=== PATIENT | male | born 1975 | race Caucasian/White ===

== ENCOUNTER 2016-09-05 07:15 | Day surgery (SDC) | payer OTHER ==
[2016-08-23 15:03] VITALS: BMI 26.0
--- NOTE | 2016-08-23 15:32 | PAT Medication Instructions ---
Service Date August 23, 2016. Current Home Medication List Cetirizine (Zyrtec), 10 MG PO QAM Ibuprofen (Advil), 200 MG PO PRN Omeprazole (Prilosec), 20 MG PO QAM Vitamin B Cmplx/Vitc/Folic Ac (Nephrocaps), 1 CAP PO QPM Medication Instructions For Your Scheduled Surgery - Hold the following for 1 week prior to surgery per surgeon's instructions: Ibuprofen (Advil), 200 MG PO PRN - Hold the following medications the morning of surgery: Cetirizine (Zyrtec), 10 MG PO QAM - Take the following medications the morning of surgery with a sip of water OTHERWISE NOTHING TO EAT OR DRINK AFTER MIDNIGHT: Omeprazole (Prilosec), 20 MG PO QAM - Take the following medications as scheduled the night before surgery: Vitamin B Cmplx/Vitc/Folic Ac (Nephrocaps), 1 CAP PO QPM If you have any questions please call us at [phone] or [phone] or [phone]
[2016-08-23 16:01] LABS: BASO % 0.5 %; BASO ABS # 0.04 K/uL (0-0.2); COMPLETE YES; HEMATOCRIT 45.7 % (42-52); IG% 0.1 %; LYMPH ABS # 2.57 K/uL (1.2-3.4); MEAN CELL VOLUME 92.7 fL (80-100); MEAN CORPUSCULAR HEMOGLOBIN 31.4 pg (25-34); MEAN CORPUSCULAR HGB CONC 33.9 g/dl (32-36); MEAN PLATELET VOLUME 9.5 fL (7.4-10.4); MONO % 7.3 %; NEUT % 54.1 %; PLATELET COUNT 300 K/uL (130-400); RED BLOOD COUNT 4.93 M/uL (4.7-6.1); WHITE BLOOD COUNT 7.35 K/uL (4.8-10.8)
[2016-08-23 16:02] LABS: URINE APPEARANCE CLEAR (CLEAR); URINE BILIRUBIN NEG (NEG); URINE COLOR YELLOW; URINE NITRITE NEG (NEG); URINE SPECIFIC GRAVITY 1.009 (1.000-1.030); UROBILINOGEN NEG (NEG)
--- NOTE | 2016-08-23 16:03 | DIAGNOSTIC IMAGING REPORT ---
CHEST PREADMISSION(PA/LAT) CLINICAL HISTORY: PAT COMPARISON STUDY: No previous studies for comparison. FINDINGS: The bones soft tissues and hemidiaphragms are normal. The cardiomediastinal silhouette is normal. The lungs are clear. The pulmonary vasculature is normal. IMPRESSION: Negative chest. Electronically signed by: Homer Smith M.D. 08/23/2016 4:01 PM Dictated Date/Time: 08/23/2016 4:01 PM
[2016-08-23 16:04] LABS: MANUAL MICROSCOPIC REQUIRED? NO; REVIEW REQ? NO
[2016-08-23 16:25] LABS: BUN/CREATININE RATIO 8.1 (10-20); CREATININE 1.3 mg/dl (0.60-1.40); POTASSIUM 4.2 mmol/L (3.5-5.1)
[~2016-09-05] VITALS: Ht 188 cm; Wt 94.4 kg
[~2016-09-05 07:15] MED LIST: B-CO1CAP17 PO; CEFAZOLIN 2000 MG/60 ML D5W IV SCH; CETI10TA84 PO; FENTANYL CITRATE INJ 50 MCG/1 ML 2 ML VIAL ONE; IBUP-1050 PO; LACTATED RINGER'S 1000ML 1,000 ML IV SCH; LIDOCAINE HCL 2% 2 ML VIAL (20MG/ML) ONE; MIDAZOLAM HCL 1 MG/ML 2ML VIAL ONE; PRLSR20 PO; PROPOFOL IV EMULSION 10 MG/ML 20 ML VIAL IV ONE
[2016-09-05] MEDS ORDERED: BUPIVACAINE 0.5 % 5 MG/1 ML MPF 30ML VIAL ONE (07:17)
[2016-09-05] MEDS ORDERED: BACITRACIN OINT 15 GM TUBE ONE (07:17)
[2016-09-05] MEDS ORDERED: LIDOCAINE HCL 1% 20 ML VIAL ONE (07:17)
[2016-09-05 07:43] VITALS: BP 125/80; PULSE 63; TEMP 37.1; O2SAT 96; Ht 188 cm; Wt 94.4 kg
[2016-09-05] MEDS ORDERED: HYDROmorphone INJ 1 MG/ML SYR IV PRN (08:45)
[2016-09-05] MEDS ORDERED: PHENYLEPHRINE 100MCG/ML 5ML SYR IV PRN (08:45)
[2016-09-05] MEDS ORDERED: ATROPINE SULFATE 0.1 MG/ML 5ML SYR IV PRN (08:45)
[2016-09-05] MEDS ORDERED: ONDANSETRON INJ 2 MG/ML 2 ML VIAL IV PRN (08:45)
[2016-09-05] MEDS ORDERED: EpHEDrine SULFATE INJ 50 MG/ML AMP IV PRN (08:45)
--- NOTE | 2016-09-05 11:20 | History & Physical Bridge Note ---
H&P Re-Evaluation Bridge Note: I have examined the patient, reviewed the History & Physical and in the interval since the performance of the History & Physical I have noted the following changes of clinical significance: No changes noted
[2016-09-05] MEDS ORDERED: DEXAMETHASONE SOD INJ 4 MG/ML VIAL ONE (11:41)
[2016-09-05] MEDS ORDERED: ONDANSETRON INJ 2 MG/ML 2 ML VIAL ONE (11:42)
[2016-09-05] MEDS ORDERED: EpHEDrine SULFATE 50MG/5ML SYR ONE (11:51)
[2016-09-05] MEDS ORDERED: CEPH500C2 PO (12:47)
[2016-09-05] MEDS ORDERED: OXYC7.5T65 PO (12:47)
--- NOTE | 2016-09-05 12:50 | Discharge Instructions ---
Discharge Instructions Date of Service Sep 05, 2016. Admission Reason for Admission: Phimosis & Sterilization Discharge Discharge Diagnosis / Problem: Circumcision, bilateral vas, release of chordee Discharge Goals Goal(s): Improve function, Increase independence, Therapeutic intervention Activity Recommendations Activity Limitations: as noted below Lifting Limitations: no more than 25 pounds, gradually increase as tolerated ( x 5-7 days) Exercise/Sports Limitations: rest today, gradually increase as tolerated (x 5- 7 days) May Resume Sexual Activity: after two weeks Shower/Bathe: tomorrow (no tub bath) . Instructions / Follow-Up Instructions / Follow-Up Ice packs, scrotal support x 1-2 days Bacitracin ointment to incisions at least three times a day Remove penile dressing if becomes too tight or painful, otherwise remove in 24 hours Discharge Diet Recommended Diet: Regular Diet (good fluid intake) Procedures Procedures Performed: Bilateral Vasectomy, Circumcision and Repair of Chordee Pending Studies Studies pending at discharge: yes List of pending studies: Pathology reports Medical Emergencies . Who to Call and When: Medical Emergencies: If at any time you feel your situation is an emergency, please call 911 immediately. . Non-Emergent Contact Non-Emergency issues call your: Urologist Call Non-Emergent contact if: you have a fever, temperature is above 101, your pain is not controlled, your pain is worsening, your pain is concerning you, wound has increased drainage, wound has increased redness, wound has increased pain, you have any medication questions . . "Provider Documentation" section prepared by Ko Aviles. . VTE Core Measure Inpt VTE Proph given/why not?: SCD's [place] Drug Monitoring Program Search Results: patient reviewed within database, no issues identified
--- NOTE | 2016-09-05 12:52 | [facility] Post Operative Brief Note ---
Immediate Operative Summary Operative Date Sep 05, 2016. Pre-Operative Diagnosis Phimosis, Undesired Fertility Post-Operative Diagnosis Same, Chordee Procedure(s) Performed Bilateral Vasectomy, Circumcision and Repair of Chordee Surgeon Dr. Ko Aviles Correctional Probation Officer Surgeon(s) None Estimated Blood Loss 10 ML Findings Chordee noted on closure, release for penile straightening, excellent hemostasis and cosmesis Specimens Specimens A. Vas Deferens Left B. Vas Deferens Right C. Foreskin Drains NA Anesthesia GALMA + local Complication(s) None Disposition Recovery Room / PACU
[2016-09-05] MEDS ORDERED: OXYCODONE/ACETAMINOPHEN 5-325 TAB PO PRN (13:00)
[2016-09-05 13:25] VITALS: BP 115/59; PULSE 75; TEMP 36.4; O2SAT 98
--- NOTE | 2016-09-05 13:34 | Anesthesiology Progress Note ---
Anesthesia Post Op Note Date & Time Sep 05, 2016 at 13:34 Vital Signs Pain Intensity: 2 Vital Signs Past 12 Hours Date Time Temp Pulse Resp B/P (MAP) Pulse Ox O2 Delivery O2 Flow Rate FiO2 09/05/16 13:20 36.1 66 13 128/71 94 Room Air 09/05/16 13:10 73 14 124/71 100 Room Air 09/05/16 13:00 67 12 104/46 100 Mask 10 09/05/16 12:50 76 10 124/67 100 Mask 10 09/05/16 12:41 36.7 72 16 111/64 100 Mask 10 09/05/16 07:43 37.1 63 16 125/80 (95) 96 Room Air Notes Mental Status: alert / awake / arousable, participated in evaluation Pt Amnestic to Procedure: Yes Nausea / Vomiting: adequately controlled Pain: adequately controlled Airway Patency, RR, SpO2: stable & adequate BP & HR: stable & adequate Hydration State: stable & adequate Anesthetic Complications: no major complications apparent
[2016-09-05 13:55] VITALS: BP 114/71; PULSE 68; O2SAT 100
[2016-09-05 14:25] VITALS: BP 132/72; PULSE 68; TEMP 36.4; O2SAT 96
--- NOTE | 2016-09-05 19:14 | OPERATIVE REPORT ---
DATE OF OPERATION: 09/05/2016 PREOPERATIVE DIAGNOSIS: Phimosis, undesired fertility. POSTOPERATIVE DIAGNOSIS: Same, chordee. PROCEDURE: Bilateral vasectomy, circumcision and correction of chordee. SURGEON: Dr. Ko Aviles. TRAIN SYSTEM OPERATOR: None. ANESTHESIA: General anesthesia with laryngeal mask plus local penile block and a vas block. COMPLICATIONS: None. ESTIMATED BLOOD LOSS: 10 mL. FINDINGS: Chordee noted on closure, release for penile straightening, excellent cosmesis and hemostasis. SPECIMENS SENT TO PATHOLOGY: Left vas, right vas, foreskin. DRAINS LEFT IN PLACE: None. BRIEF HISTORY: Mr. Ivan is a 41-year-old male well-known to myself, who I have seen as an outpatient for history of undesired fertility and phimosis. He notes that he is bothered with his foreskin and desires circumcision. Seeing the confluence of these 2 factors, he is being brought to the operating room for correction rather than being performed in the office. Please see H&P for further details. Consent for both procedures was reviewed today preoperatively with the patient. Intravenous Ancef provided for antibiotic coverage and SCDs used for DVT prophylaxis. PROCEDURE: The patient was properly identified and brought to the operative suite. After identification of appropriate consent on the chart, general anesthesia with laryngeal mask was initiated and the patient was prepped and draped in standard fashion for this procedure. industrial maintenance instructor-out procedure was followed. Attention was first turned to the vas deferens, which were easily palpable on both sides. Small skin wheal was made in the midline superior anterior scrotum and a small incision was made using a 15 blade. Left-sided vas was palpated and anesthetized with a vasal sheath block. This was then dissected free using sharp hemostats and grasped using a ring forceps. It was able to be delivered from the incision easily and was circumscribed and well defined. It was clamped on both ends and then divided. A greater than 1 cm length of vas was excised. Both ends of the vas were generously cauterized and then tied using 2-0 Vicryl ties. They were returned to the scrotum and in different planes and the procedure was repeated on the right hand side where the vas was again easily palpable, blocked using a cord block, excised, fulgurated and tied. Both vas were returned to their scrotal location and the skin was closed using 4-0 Monocryl. Bacitracin was placed over the incision and pressure was held for a moment with no significant swelling or bruising being appreciated. After this was complete, attention was turned to the foreskin. The limits of dissection were marked using a skin marker and 2 circumferential incisions for a sleeve technique to be performed. Excess foreskin was divided at the 12 o'clock position using Metzenbaum scissors and then removed from the patient using Bovie cautery, care taken to avoid any injury to the corpora or neurovascular bundles of the penis. After this was excised, excess foreskin was removed and sent off for pathologic analysis. Excellent apposition of the skin was noted. Excess frenular tissue was removed and hemostasis was obtained with Bovie cautery as necessary. A 3-0 Vicryl suture was used at the cardinal positions and then remaining skin was closed using 3-0 chromic sutures circumferentially. However, on completion of the case and while observing the cosmesis of the procedure, some ventral chordee was appreciated in the distal shaft of the head of the penis. It was likely felt that a tethering at the level of the skin was present preoperatively, had been released and then reattached upon closure of the circumcision incision. The ventral sutures were released and blunt dissection was carried out on the subcutaneous tissues to allow adequate straightening of penis. These incisions were then reapproximated with excess skin being removed in a longitudinal fashion rather than circumferential. This allowed for a significant correction of the patient's chordee on inspection surgically with a repeat excellent cosmesis. After this was complete, a generous bacitracin ointment was placed as well as a Xeroform gauze and loosely wrapped Coban dressing. Scrotal support with fluffs was placed. Anesthesia was reversed. The patient was transferred to the recovery room in stable condition. FOLLOWUP CARE: The patient will be discharged home with a prescription for Percocet and Keflex. Postoperative appointments are confirmed. The patient is instructed to use ice packs and jockstrap x48 hours. Activity limitations are reviewed. The patient is instructed to contact our service should he note any fevers, chills, nausea, vomiting or other significant difficulties in the postoperative period. I attest to the content of the Intraoperative Record and any orders documented therein. Any exception s are noted below.
== END 2016-09-05 14:37 | disposition home or self-care (01) ==
LOC: C.ACU 07:15
PROVIDERS: ATTEND Urology
DX: N47.1 Phimosis (principal); Z30.2 Encounter for sterilization; N48.89 Other specified disorders of penis; Z87.01 Personal history of pneumonia (recurrent); Z90.49 Acquired absence of other specified parts of digestive tract; Z80.42 Family history of malignant neoplasm of prostate

== ENCOUNTER → 2017-01-10 | Outpatient (CLI) | payer OTHER ==
[~2017-01-10] MED LIST changes: -CEFAZOLIN 2000 MG/60 ML D5W IV SCH; +CEPH500C2 PO; -FENTANYL CITRATE INJ 50 MCG/1 ML 2 ML VIAL ONE; -LACTATED RINGER'S 1000ML 1,000 ML IV SCH; -LIDOCAINE HCL 2% 2 ML VIAL (20MG/ML) ONE; -MIDAZOLAM HCL 1 MG/ML 2ML VIAL ONE; +OXYC7.5T65 PO; -PROPOFOL IV EMULSION 10 MG/ML 20 ML VIAL IV ONE
--- NOTE | 2017-01-10 08:56 | DIAGNOSTIC IMAGING REPORT ---
ULTRASOUND TESTES AND SCROTUM CLINICAL HISTORY: Right testicular pain. COMPARISON STUDY: No priors. TECHNIQUE: Real-time, grayscale, and color Doppler sonography of the testes and scrotum is performed. Images are reviewed in the transverse and longitudinal planes. FINDINGS: The testes are normal in size and homogeneous in echotexture. The right testis measures 4. By 2.0 x 3.2 cm and the left testis measures 4.3 x 1.9 x 3.3 cm. No intratesticular mass is seen. Testicular blood flow is normal and symmetric. Normal Doppler waveforms are identified in both testes. The epididymal heads are normal in appearance. The right epididymal head measures 1.1 cm in length and the left epididymal head measures 1.0 cm in length. No varicocele or hydrocele is seen. IMPRESSION: Unremarkable sonographic assessment of the testes and scrotum. Electronically signed by: Donny Tijerina M.D. 01/10/2017 8:54 AM Dictated Date/Time: 01/10/2017 8:53 AM
== END | disposition home or self-care (01) ==
LOC: C.ULTRBC 08:25
PROVIDERS: ATTEND Family Medicine
DX: N50.819 Testicular pain, unspecified (principal); R10.13 Epigastric pain

== ENCOUNTER 2017-05-21 20:11 | Emergency (ER) | payer OTHER ==
[~2017-05-21] VITALS: Ht 188 cm; Wt 96.2 kg
[~2017-05-21 20:11] MED LIST changes: -CEPH500C2 PO; -OXYC7.5T65 PO
[2017-05-21 20:19] VITALS: TEMP 36.9; Ht 188 cm; Wt 96.2 kg
[2017-05-21 21:00] VITALS: O2SAT 95
--- NOTE | 2017-05-21 21:00 | EMERGENCY ROOM VISIT NOTE ---
History Report prepared by Giuseppe: Jennifer Rojo Under the Supervision of: Dr. Deuce Beebe M.D. First contact with patient: 20:52 Chief Complaint: CHEST PAIN Stated Complaint: CHEST PAIN FRONT AND BACK History of Present Illness The patient is a 41 year old male who presents to the Emergency Room with complaints of worsening chest pain that has been ongoing for the last several years. The patient rates his pain an 8/10 in severity. He notes he's had chest pain for the past several years but today it got much worse. He describes the pain as "sharp". He notes it was present throughout most of the day today. He states the pain radiates to the middle of his back and sometimes in his shoulders. He sates "sometimes it feels like there is pain going down my esophagus". He has an EDG scheduled for June 02. The patient notes he has been nauseous. He denies any fevers, chills, cough, congestion, vomiting, or diarrhea. The patient denies any history of diabetes, high blood pressure. He denies any family history of early due to heart attacks. He notes his sister has an aneurysm in her head. Source of History: patient Onset: ongoing for several years Position: chest Symptom Intensity: 8/10 Quality: sharp Timing: worsening Associated Symptoms: + nausea, No fevers, No chills, No cough, No vomiting, No diarrhea Review of Systems See HPI for pertinent positives and negatives. A total of ten systems were reviewed and were otherwise negative. Past Medical & Surgical Medical Problems: (1) Gastroesophageal reflux disease (2) IBS (3) Tonsillectomy Family History Sister has a brain aneurysm. Social History Smoking Status: Never Smoker Alcohol Use: none Drug Use: none Marital Status: Housing Status: lives with family Occupation Status: employed Current/Historical Medications Scheduled Famotidine (Pepcid), 20 MG PO BID Omeprazole (Prilosec), 20 MG PO BID Scheduled PRN Acetaminophen (Tylenol), 1 TAB PO Q8 PRN for Pain Allergies Coded Allergies: Dicyclomine (Unverified Allergy, Unknown, RASH, 05/21/17) Dutasteride (Unverified Allergy, Unknown, HIVES, 05/21/17) Gluten (Unverified Allergy, Unknown, GI UPSET, 05/21/17) Levofloxacin (Verified Allergy, Unknown, "DOES SOMETHING WEIRD, CAN NOT EXPLAIN", 05/23/17) Physical Exam Vital Signs Date Time Temp Pulse Resp B/P (MAP) Pulse Ox O2 Delivery O2 Flow Rate FiO2 05/21/17 23:05 75 18 121/72 98 Room Air 05/21/17 21:00 95 Room Air 05/21/17 21:00 94 Room Air 05/21/17 20:57 69 05/21/17 20:19 36.9 77 18 134/86 99 Room Air Physical Exam GENERAL: Awake, alert, uncomfortable appearing, in no distress HENT: Normocephalic, atraumatic. Oropharynx unremarkable. Dry mucus membranes. EYES: Normal conjunctiva. Sclera non-icteric. NECK: Supple. No nuchal rigidity. FROM. No JVD. RESPIRATORY: Clear to auscultation. CARDIAC: Regular rate, normal rhythm. Extremities warm and well perfused. Pulses equal. UPPER EXTREMITIES: Equal bilateral extremity pulses. ABDOMEN: Mild ttp to epigastrium, no peritoneal signs. RECTAL: Deferred. MUSCULOSKELETAL: MIld ttp to upper anterior chest wall and thoracis paraspinal muscles, no step offs. LOWER EXTREMITIES: Calves are equal size bilaterally and non-tender. No edema. No discoloration. NEURO: Normal sensorium. No sensory or motor deficits noted. SKIN: No rash or jaundice noted. Medical Decision & Procedures Laboratory Results 05/21/17 21:00 Red Blood Count 4.43, Mean Corpuscular Volume 90.7, Mean Corpuscular Hemoglobin 32.3, Mean Corpuscular Hemoglobin Concent 35.6, Mean Platelet Volume 9.2, Neutrophils (%) (Auto) 59.0, Lymphocytes (%) (Auto) 28.1, Monocytes (%) (Auto) 10.9, Eosinophils (%) (Auto) 1.4, Basophils (%) (Auto) 0.5, Neutrophils # (Auto ) 4.52, Lymphocytes # (Auto) 2.16, Monocytes # (Auto) 0.84, Eosinophils # (Auto ) 0.11, Basophils # (Auto) 0.04 05/21/17 21:00 Test 05/21/17 21:00 White Blood Count 7.68 K/uL (4.8-10.8) Red Blood Count 4.43 M/uL (4.7-6.1) Hemoglobin 14.3 g/dL (14.0-18.0) Hematocrit 40.2 % (42-52) Mean Corpuscular Volume 90.7 fL (80-100) Mean Corpuscular Hemoglobin 32.3 pg (25-34) Mean Corpuscular Hemoglobin Concent 35.6 g/dl (32-36) Platelet Count 252 K/uL (130-400) Mean Platelet Volume 9.2 fL (7.4-10.4) Neutrophils (%) (Auto) 59.0 % Lymphocytes (%) (Auto) 28.1 % Monocytes (%) (Auto) 10.9 % Eosinophils (%) (Auto) 1.4 % Basophils (%) (Auto) 0.5 % Neutrophils # (Auto) 4.52 K/uL (1.4-6.5) Lymphocytes # (Auto) 2.16 K/uL (1.2-3.4) Monocytes # (Auto) 0.84 K/uL (0.11-0.59) Eosinophils # (Auto) 0.11 K/uL (0-0.5) Basophils # (Auto) 0.04 K/uL (0-0.2) RDW Standard Deviation 38.8 fL (36.4-46.3) RDW Coefficient of Variation 11.7 % (11.5-14.5) Immature Granulocyte % (Auto) 0.1 % Immature Granulocyte # (Auto) 0.01 K/uL (0.00-0.02) Anion Gap 11.0 mmol/L (3-11) Est Creatinine Clear Calc Drug Dose 73.2 ml/min Estimated GFR () 64.1 Estimated GFR (Non- 55.3 BUN/Creatinine Ratio 10.7 (10-20) Calcium Level 9.2 mg/dl (8.5-10.1) Total Bilirubin 0.2 mg/dl (0.2-1) Direct Bilirubin < 0.1 mg/dl (0-0.2) Aspartate Amino Transf (AST/SGOT) 17 U/L (15-37) Alanine Aminotransferase (ALT/SGPT) 22 U/L (12-78) Alkaline Phosphatase 64 U/L (45-117) Troponin I < 0.015 ng/ml (0-0.045) Total Protein 7.0 gm/dl (6.4-8.2) Albumin 3.7 gm/dl (3.4-5.0) Lipase 153 U/L (73-393) Laboratory results reviewed by me Medications Administered Medications (Trade) Dose Ordered Sig/Isi Route Start Time Stop Time Status Last Admin Dose Admin Famotidine (Pepcid 20mg Iv Push) 20 mg NOW STAT IV 05/21/17 21:36 05/21/17 21:38 DC 05/21/17 21:49 20 MG Acetaminophen (Tylenol Tab) 1,000 mg NOW STAT PO 05/21/17 21:36 05/21/17 21:38 DC 05/21/17 21:48 1,000 MG Miscellaneous Medication (Gi Cocktail) 24 ml NOW STAT PO 05/21/17 21:36 05/21/17 21:38 DC 05/21/17 21:36 24 ML Diazepam (Valium Tab) 5 mg NOW STAT PO 05/21/17 21:36 05/21/17 21:38 DC 05/21/17 21:48 5 MG Diazepam (Valium Tab) 5 mg NOW STAT PO 05/21/17 23:18 05/21/17 23:20 DC 05/21/17 23:18 5 MG ECG Per My Interpretation Indication: chest pain Rate (beats per minute): 69 Rhythm: normal sinus Findings: no acute ischemic change, other (normal axis) ED Course 2051: The patient was evaluated in room C12B. A complete history and physical exam was performed. 2128: I answered all of the patient's questions and concerns regarding his CT. Medical Decision I reviewed the patient's past medical history, medications, and the nursing notes as described above. Differential diagnosis: Etiologies such as cardiac ischemia, aortic dissection, pulmonary embolism, pneumonia, pneumothorax, musculoskeletal, infections, pericarditis, myocarditis , esophageal rupture, gastrointestinal, as well as others were entertained. The patient is a 41-year-old gentleman with a past medical history of CKD and chronic chest and abdominal pain presents emergency Department with chest, back , abdominal pain that has been worsening since earlier today per hpi. Arrival the patient is no acute distress, afebrile stable vital signs. She has mild epigastric discomfort as well as anterior chest wall tenderness to palpation. Additionally patient has bilateral paraspinal thoracic muscle tenderness to palpation. She denies equal pulses bilaterally. The patient initially reporting tearing pain in his stomach to his back. He also reports that he has a sister who is known to have a cerebral aneurysm. Thus given this history I recommended to the patient that we obtain a CTA of his chest and belly to assess his aorta. Patient seems quite certain that he has had these studies in the past as outpatient. However we do not have the studies readily available. CTA was ordered however then patient was reluctant given his history of numerous CTs in the past. Given the patient's equal pulses and lack of neurologic symptoms it reasonable to defer this at this time. Bedside ultrasound of the patient's abdominal aorta and echo did not show any gross enlargement his abdominal aorta or aortic root. CXR unremarkable with normal mediastinum. Labs are unremarkable including WBC within normal limits. Creatinine near baseline. Patient feeling much improved after IV fluids, IV Pepcid and GI cocktail as well as Valium for muscle spasm. Plan to follow with the patient's current outpatient plan including endoscopy in early June. Findings and plan for follow-up reviewed with patient. Patient agreeable and d/c 'd per discharge instructions. Medication Reconcilliation Current Medication List: was personally reviewed by me Impression Primary Impression: Chest wall pain Additional Impressions: Gastritis Spasm of back muscles Dehydration Scribe Attestation The scribe's documentation has been prepared under my direction and personally reviewed by me in its entirety. I confirm that the note above accurately reflects all work, treatment, procedures, and medical decision making performed by me. Departure Information Dispostion Home / Self-Care Referrals No Doctor, Assigned (PCP) Patient Instructions ED Chest Pain Costochondritis, ED Dehydration, ED Gastritis, ED Muscle Aching, ED Spasm Muscle, My [facility] Additional Instructions Please follow up with your primary care physician and with your GI specialist as scheduled for re-evaluation. Your symptoms are most likely due to muscle strain provoked by physical activity in the setting of mild dehydration as well as likely symptoms of chronic gastritis. Otherwise, your exam, EKG, chest xray, and lab results did not show signs of an emergent condition at this time. Acetaminophen for pain and fevers as needed. Pepcid in addition to your omeprazole for additional acid relief/reduction. Heating pad at 20 minute intervals throughout the day for muscle relaxation. Valium as needed for additional muscle relaxation. Drink plenty of fluids to ensure hydration. Return to the emergency department for worsening symptoms as described in the accompanying instructions. Problem Qualifiers
[2017-05-21 21:09] LABS: BASO % 0.5 %; BASO ABS # 0.04 K/uL (0-0.2); EOS % 1.4 %; EOS ABS # 0.11 K/uL (0-0.5); HEMATOCRIT 40.2 % (42-52); HEMOGLOBIN 14.3 g/dL (14.0-18.0); IG# 0.01 K/uL (0.00-0.02); LYMPH % 28.1 %; LYMPH ABS # 2.16 K/uL (1.2-3.4); MEAN CELL VOLUME 90.7 fL (80-100); MEAN CORPUSCULAR HEMOGLOBIN 32.3 pg (25-34); MEAN CORPUSCULAR HGB CONC 35.6 g/dl (32-36); MEAN PLATELET VOLUME 9.2 fL (7.4-10.4); MONO % 10.9 %; MONO ABS # 0.84 K/uL (0.11-0.59); NEUT ABS # 4.52 K/uL (1.4-6.5); PLATELET COUNT 252 K/uL (130-400); RED CELL DISTRIBUTION WIDTH CV 11.7 % (11.5-14.5); RED CELL DISTRIBUTION WIDTH SD 38.8 fL (36.4-46.3); WHITE BLOOD COUNT 7.68 K/uL (4.8-10.8)
[2017-05-21] MEDS ORDERED: OPTIRAY 320 IV PRN (21:15)
[2017-05-21] MEDS ORDERED: SIME1CAP9 PO (21:26)
[2017-05-21] MEDS ORDERED: ZINC COMPLEX PO (21:26)
[2017-05-21] MEDS ORDERED: ZFRODT4HP PO (21:26)
[2017-05-21] MEDS ORDERED: [UNRECOGNIZED DRUG - CODE] PO (21:26)
[2017-05-21] MEDS ORDERED: MAGN400T6 PO (21:26)
[2017-05-21 21:33] LABS: ALBUMIN 3.7 gm/dl (3.4-5.0); ALT/SGPT 22 U/L (12-78); AST/SGOT 17 U/L (15-37); BLOOD UREA NITROGEN 16 mg/dl (7-18); CALCIUM 9.2 mg/dl (8.5-10.1); CARBON DIOXIDE 27 mmol/L (21-32); CREATININE 1.53 mg/dl (0.60-1.40); GLUCOSE 139 mg/dl (70-99); LIPASE 153 U/L (73-393); POTASSIUM 3.8 mmol/L (3.5-5.1); SODIUM 140 mmol/L (136-145)
[2017-05-21] MEDS ORDERED: ACETAMINOPHEN 500 MG TAB PO STA (21:36)
[2017-05-21] MEDS ORDERED: FAMOTIDINE 20MG/5ML IV PUSH IV STA (21:36)
[2017-05-21] MEDS ORDERED: DIAZEPAM 5MG TAB PO STA ×3 (21:36→23:18)
[2017-05-21] MEDS ORDERED: GI COCKTAIL PO STA (21:36)
[2017-05-21 21:39] LABS: ALKALINE PHOSPHATASE 64 U/L (45-117)
[2017-05-21] MEDS ORDERED: LIDOCAINE HCL 2% VISC SOLN 20 ML UDC ONE (21:44)
[2017-05-21] MEDS ORDERED: ALUMINUM/MAGNESIUM SUSP 30 ML UDC ONE (21:45)
--- NOTE | 2017-05-21 21:51 | DIAGNOSTIC IMAGING REPORT ---
CHEST ONE VIEW PORTABLE HISTORY: Atypical CHEST PAIN COMPARISON: 08/23/2016. FINDINGS: The lungs are clear. Cardiac silhouette is normal in size. No pleural effusions. No pneumothorax. IMPRESSION: No acute process. Electronically signed by: Bartolo Julien M.D. 05/21/2017 9:50 PM Dictated Date/Time: 05/21/2017 9:49 PM
[2017-05-21] MEDS ORDERED: FAMO20TA9 PO (22:35)
[2017-05-21 23:05] VITALS: BP 121/72; PULSE 75; O2SAT 98
[2017-05-21] MEDS ORDERED: EMPTY 8 DRAM VIAL ONE (23:22)
[2017-05-23] MEDS ORDERED: FAMO20TA9 PO (15:35)
[2017-05-23] MEDS ORDERED: ACET-1256 PO (15:35)
== END 2017-05-21 23:43 | disposition home or self-care (01) ==
LOC: C.EDB 20:12 → C.EDC 23:43
DX: R07.89 Other chest pain (principal); K29.70 Gastritis, unspecified, without bleeding; M62.830 Muscle spasm of back; E86.0 Dehydration; K21.9 Gastro-esophageal reflux disease without esophagitis; Z90.89 Acquired absence of other organs; Z82.49 Family history of ischemic heart disease and other diseases of the circulatory system; Z79.899 Other long term (current) drug therapy

== ENCOUNTER → 2017-06-02 | Day surgery (SDC) | payer OTHER ==
[2017-05-23 15:35] VITALS: Ht 188 cm; Wt 94.5 kg
[~2017-06-02] VITALS: Ht 188 cm; Wt 94.5 kg
[~2017-06-02] MED LIST changes: +ACET-1256 PO; -B-CO1CAP17 PO; -CETI10TA84 PO; +FAMO20TA9 PO; -IBUP-1050 PO; +LIDOCAINE HCL 2% 2 ML VIAL (20MG/ML) ONE; +MIDAZOLAM HCL 1 MG/ML 2ML VIAL ONE; +PROPOFOL IV EMULSION 10 MG/ML 20 ML VIAL IV ONE; +SODIUM CHLORIDE 0.9% 500ML 500 ML IV ONE
--- NOTE | 2017-06-02 12:02 | Endo History and Physical ---
History & Physical Date of Service: Jun 02, 2017. Chief Complaint: Ab pain, chest pain, nausea Referring Physician: Pierce Olson History of Present Illness 41 yo male who presents for EGD secondary to abdominal pain, chest pain and nausea. Past Medical History Fractures, Reflux, High Cholesterol, Depression Past Surgical History Hx Cardiac Surgery: No Hx Internal Defibrillator: No Hx Pacemaker: No Hx Abdominal Surgery: Yes (REENA) Hx of Implantable Prosthesis: No Hx Post-Op Nausea and Vomiting: No Hx Cancer Surgery: No Hx Thoracic Surgery: No Hx Orthopedic: No Hx Urinary Tract Surgery: Yes (VASECTOMY) Family History None Social History Smoking Status: Never Smoker Hx Substance Use: No Hx Alcohol Use: Yes (VERY RARELY) Allergies Coded Allergies: Dicyclomine (Unverified Allergy, Unknown, RASH, 05/21/17) Dutasteride (Unverified Allergy, Unknown, HIVES, 05/21/17) Gluten (Unverified Allergy, Unknown, GI UPSET, 05/21/17) Levofloxacin (Verified Allergy, Unknown, "DOES SOMETHING WEIRD, CAN NOT EXPLAIN", 05/23/17) Current Medications Reported Home Medications Medications Dose Route/Sig Max Daily Dose Days Date Category Tylenol (Acetaminophen) 500 Mg Tab 1 Tab PO Q8 PRN 05/23/17 Reported Pepcid (Famotidine) 20 Mg Tab 20 Mg PO BID 05/23/17 Reported Prilosec (Omeprazole) 20 Mg Capcr 20 Mg PO BID 01/01/15 Reported Vital Signs Weight (Kilograms): 94.55 Height (Feet): 6 Height (Inches): 2 Physical Exam General Appearance: WD/WN, no apparent distress Respiratory/Chest: Auscultation: breath sounds normal Cardiovascular: Heart Auscultation: RRR Abdomen: Bowel Sounds: normal Inspection & Palpation: soft, non-distended, no tenderness, guarding & rebound Assessment and Plan Assessment: 41 yo male who presents for EGD secondary to abdominal pain, chest pain and nausea. Plan: Proceed with EGD.
--- NOTE | 2017-06-02 13:18 | Discharge Instructions ---
Endoscopy Patient Instructions Date / Procedure(s) Performed Jun 02, 2017. EGD Allergy Information Coded Allergies: Dicyclomine (Unverified Allergy, Unknown, RASH, 05/21/17) Dutasteride (Unverified Allergy, Unknown, HIVES, 05/21/17) Gluten (Unverified Allergy, Unknown, GI UPSET, 05/21/17) Levofloxacin (Verified Allergy, Unknown, "DOES SOMETHING WEIRD, CAN NOT EXPLAIN", 05/23/17) Discharge Date / Findings Jun 02, 2017. Duodenal biopsies Gastric antrum biopsies Hiatal hernia Medication Instructions OK to resume all medications today as prescribed Reported Home Medications Medications Dose Route/Sig Max Daily Dose Days Date Category Tylenol (Acetaminophen) 500 Mg Tab 1 Tab PO Q8 PRN 05/23/17 Reported Pepcid (Famotidine) 20 Mg Tab 20 Mg PO BID 05/23/17 Reported Prilosec (Omeprazole) 20 Mg Capcr 20 Mg PO BID 01/01/15 Reported Provider Instructions Activity Restrictions - No exercising or heavy lifting for 24 hours. - Do not drink alcohol the day of the procedure. - Do not drive a car or operate machinery until the day after the procedure. - Do not make any important decisions or sign important papers in 24 hours after the procedure. Following Day: - Return to full activity which may include returning to work/school. Diet Start your diet with liquids and light foods (jello, soup, juice, toast). Then eat your usual diet if not nauseated. Treatment For Common After Affects For mild abdominal pain, bloating, or excessive gas: - Rest - Eat lightly - Lie on right side Follow-Up Information Follow-up with Pierce Olson as scheduled Anesthesia Information What You Should Know You have had a procedure that required some medicine to reduce anxiety and discomfort. This treatment is called moderate sedation. After receiving the treatment, you may be sleepy, but you will be able to breathe on your own. The effects of the treatment may last for several hours. Follow these instructions along with Activity/Diet recommendations noted above: * Do NOT do anything where dizziness or clumsiness would be dangerous. * Rest quietly at home today, then you can be up and about tomorrow. * Have a responsible person stay with you the rest of today. * You may have had an I.V. today. If so, you may take the dressing off later today. Recommendations Call your doctor if: * Trouble breathing * Continuous vomiting for more than 24 hours * Temperature above 101 degrees * Severe abdominal pain or bloating * Pain not relieved by pain medicine ordered * There is increased drainage or redness from any incision * A large amount of rectal bleeding greater than 2-3 tablespoons. (If you had a polyp/s removed or have hemorrhoids, a small amount of blood - from the rectum is to be expected.) * You have any unanswered questions or concerns. IN THE EVENT OF A SERIOUS EMERGENCY, GO TO THE NEAREST EMERGENCY ROOM Your discharge instructions were prepared by provider Filippo Ghotra. Patient Instructions Signature Page Amilcar Ivan Patient (or Guardian) Signature/Date: I have read and understand the instructions given to me by my caregivers. Caregiver/RN/Doctor Signature/Date: The above-named patient and/or guardian has received patient instructions on this date. + Original Patient Signature Page (only) stays with chart. Please make copy for patient.
--- NOTE | 2017-06-02 13:23 | GI REPORT ---
Procedure Date: 06/02/2017 12:27 PM Procedure: Upper GI endoscopy Indications: Epigastric abdominal pain, Nausea Medicines: Monitored Anesthesia Care Complications: No immediate complications. Estimated Blood Loss: Estimated blood loss: none. Procedure: Pre-Anesthesia Assessment: - Prior to the procedure, a History and Physical was performed, and patient medications and allergies were reviewed. The patient's tolerance of previous anesthesia was also reviewed. The risks and benefits of the procedure and the sedation options and risks were discussed with the patient. All questions were answered, and informed consent was obtained. Prior Anticoagulants: The patient has taken no previous anticoagulant or antiplatelet agents. ASA Grade Assessment: II - A patient with mild systemic disease. After reviewing the risks and benefits, the patient was deemed in satisfactory condition to undergo the procedure. After obtaining informed consent, the endoscope was passed under direct vision. Throughout the procedure, the patient's blood pressure, pulse, and oxygen saturations were monitored continuously. The scope was introduced through the mouth, and advanced to the second part of duodenum. The upper GI endoscopy was accomplished without difficulty. The patient tolerated the procedure well. Findings: The examined esophagus was normal. A small hiatal hernia was present. Biopsies were taken with a cold forceps in the gastric antrum for Helicobacter pylori testing. The examined duodenum was normal. Biopsies for histology were taken with a cold forceps for evaluation of celiac disease. Impression: - Normal esophagus. - Small hiatal hernia. - Normal examined duodenum. Biopsied. - Biopsies were taken with a cold forceps for Helicobacter pylori testing. Recommendation: - Resume previous diet. - Continue present medications. - Await pathology results. - Return to GI clinic as previously scheduled. Filippo Ghotra, 06/02/2017 1:23:20 PM This report has been signed electronically. Note Initiated On: 06/02/2017 12:27 PM I attest to the content of the Intraoperative Record and orders documented therein, exceptions below
[2017-06-02 13:50] VITALS: BP 100/61; PULSE 66; O2SAT 96
--- NOTE | 2017-06-02 14:27 | Anesthesiology Progress Note ---
Anesthesia Post Op Note Date & Time Jun 02, 2017 at 14:27 Vital Signs Pain Intensity: 0 Vital Signs Past 12 Hours Date Time Temp Pulse Resp B/P (MAP) Pulse Ox O2 Delivery O2 Flow Rate FiO2 06/02/17 13:50 66 16 100/61 (74) 96 Room Air 06/02/17 13:35 64 16 117/66 (83) 97 Room Air 06/02/17 13:20 70 16 95/53 (67) 95 Room Air 06/02/17 12:14 36.9 67 18 126/83 (97) 96 Room Air Notes Mental Status: alert / awake / arousable, participated in evaluation Pt Amnestic to Procedure: Yes Nausea / Vomiting: adequately controlled Pain: adequately controlled Airway Patency, RR, SpO2: stable & adequate BP & HR: stable & adequate Hydration State: stable & adequate Anesthetic Complications: no major complications apparent
== END | disposition home or self-care (01) ==
LOC: C.GI 11:31
PROVIDERS: ATTEND Internal Medicine
DX: R10.13 Epigastric pain (principal); K44.9 Diaphragmatic hernia without obstruction or gangrene; R07.9 Chest pain, unspecified; R11.0 Nausea; Z90.49 Acquired absence of other specified parts of digestive tract